=== PATIENT | male | born 1965 | race Caucasian/White ===

== ENCOUNTER 2021-01-01 04:30 | Day surgery (SDC) | payer OTHER ==
[~2021-01-01] VITALS: Ht 167.6 cm; Wt 76.2 kg
[2021-01-01 05:42] LABS: CALC OSMOLALITY 280 mosm/kg (275-300); CALCIUM 8.5 mg/dL (8.5-10.1); CARBON DIOXIDE 28.8 mmol/L (21.0-32.0); CHLORIDE - SERUM 100 mmol/L (98-107); CREATININE - SERUM 0.8 mg/dL (0.6-1.3); POTASSIUM - SERUM 4.1 mmol/L (3.5-5.1); SODIUM 137 mmol/L (136-145); UREA NITROGEN 12 mg/dL (7-18); eGFR NON AFRICAN AMERICAN > 90 mL/min (90-120)
[2021-01-01 05:44] LABS: GLUCOSE 230 mg/dL (74-106)
[2021-01-01 05:54] LABS: BASOPHILS 1.3 % (0-2); EOSINOPHILS 1.6 % (0-7); HEMATOCRIT 43.5 % (42.0-54.0); HEMOGLOBIN 14.6 g/dL (13.5-17.5); LYMPHOCYTES 38.4 % (15-50); MCH 30.4 pg (26.0-34.0); MCHC 33.6 g/dL (31.0-37.0); MCV 90.7 fL (80.0-100.0); MEAN PLATELET VOLUME 9.5 fL (7.4-10.4); MONOCYTES 9.3 % (2-11); NEUTROPHILS 49.4 % (40-80); PLATELET COUNT 214 10x3/uL (130-400); RBC 4.79 10x6/uL (4.20-6.10); RDW 13.2 % (11.5-14.5); WBC 7.2 10x3/uL (4.8-10.8)
[2021-01-01] MEDS ORDERED: NORVASC5 MG PO (06:12)
[2021-01-01] MEDS ORDERED: DULCOLAX5 MG PO (06:12)
[2021-01-01] MEDS ORDERED: LOW DOSE ASPIRI81 M1 PO (06:13)
[2021-01-01] MEDS ORDERED: NEURONTIN 400400 MG PO (06:13)
[2021-01-01] MEDS ORDERED: HCTZ25 MG PO (06:14)
[2021-01-01] MEDS ORDERED: GLUCOPHAGE1000 MG PO (06:14)
[2021-01-01] MEDS ORDERED: CRESTOR20 MG PO (06:15)
[2021-01-01] MEDS ORDERED: GLIPIZIDE10 MG PO (06:15)
[2021-01-01] MEDS ORDERED: LISINOPRIL40 MG PO (06:15)
[2021-01-01] MEDS ORDERED: COLACE100 MG PO (06:16)
[2021-01-01] MEDS ORDERED: ACETAMINOPHEN500 M1 PO (06:16)
[2021-01-01] MEDS ORDERED: OMEPRAZOLE20 M1 PO (06:17)
--- NOTE | 2021-01-01 06:25 | NUR ---
DURING HISTORY COLLECTION, PT STATES HE HAS BEEN HAVING CHEST PAIN FOR 1-2 MONTHS, HAD CP LAST 4 DAYS, LASTING APPROX 6 HOURS EACH TIME. HAD CP LAST NIGHT THAT STOPPED AROUND 0100. NOTIFIED DR GODINEZ WITH ANESTHESIA. HE CAME AND ASSESSED PT, ORDERED CARDIOLOGY CONSULT AND SURGERY ON HOLD AT THIS TIME.
--- NOTE | 2021-01-01 06:41 | NUR ---
PER DR JOSEPH, SURGERY IS CANCELLED FOR TODAY, HE WILL GO AND SPEAK WITH PT.
[2021-01-01 09:37] VITALS: Ht 167.6 cm; Wt 76.2 kg
--- NOTE | 2021-01-01 14:35 | NUR ---
DISCHARGED VIA W/C WITH GUARD TO [facility]. ALL BELONGINGS WITH GUARD.
--- NOTE | 2021-01-02 08:17 | OP ---
PATIENT NAME: LENKA ARCHER MEDICAL RECORD: [id number] :69 LOCATION:[facility] ADMISSION DATE: SURGEON: PETE JOSEPH DO DATE OF OPERATION: 01/01/2021 PROCEDURE PERFORMED: Right shoulder arthroscopy with revision rotator cuff repair, biceps tenodesis, subacromial decompression, and distal clavicle excision. PREOPERATIVE DIAGNOSES: Right shoulder recurrent rotator cuff tear, supraspinatus, SLAP tear, subacromial impingement and acromioclavicular joint arthritis. POSTOPERATIVE DIAGNOSES: Right shoulder recurrent rotator cuff tear, supraspinatus, SLAP tear, subacromial impingement and acromioclavicular joint arthritis. INDICATIONS: The patient is a 55-year-old inmate who had a right rotator cuff repair, he said in 2013. He injured it a while ago and waited seven months to have surgery done. MRIs showed the above findings. He is aware of the risks of this including infection, bleeding, damage to nerve, vessels retear, continued pain, loss of motion of the right arm, need for further surgery, and even and he signed the consent. SURGEON: Pete Joseph D.O. DESCRIPTION OF PROCEDURE: The patient was taken to the operative suite. After good block by anesthesia in preoperative area laid in left lateral decubitus position with the right shoulder up. Given 900 mg clindamycin, sedated and LMA was placed. The right shoulder was then prepped and draped in sterile fashion. Timeout was performed, everyone was in agreement of the correct side, site, patient and procedure. I then began by inflating the shoulder joint with an 18-gauge spinal needle through a posterior portal with 60 mL normal saline. I then withdrew the needle and established a posterior portal with an 11-blade scalpel. Trocar was then entered in the joint. I then established an anterior portal with an 18-gauge spinal needle and 11-blade scalpel. Trocar was brought in. I then saw a SLAP tear, full thickness rotator cuff tear of the supraspinatus at the footprint. I then brought in burner. The subscapularis was in good repair and there were no loose bodies seen in the joint inferior gutter. The cartilage was in good repair. I then did a biceps tenotomy and labral debridement at that time and went to the subacromial space and established a lateral portal. Using spinal 11-blade scalpel brought the trocar in and then did a bursectomy, subacromial decompression with acromioplasty and then through the anterior portal, a distal clavicle excision, open up the AC joint to approximately 7 mm. I then removed the instruments and opened up the lateral portal with a 15 blade scalpel, made careful dissection down with [place]'s to the rotator cuff tendon tear after using a shaver, the bur mode to decorticate the greater tuberosity. I then used 2 anchors medially with 4 suture tapes. I then brought it over to rotator cuff tear and brought over to 2 lateral row anchors. Once I was done with that, I then placed a Regeneten implant on and stapled into place sideways really due to the size of the tear and then went to the anterior humerus, made a small incision, carefully dissected long head of the biceps tendon and did a biceps tenodesis by drilling a hole unicortically and using 2.9 JuggerLoc loop stitch and put the tendon through this the loop and cinched it down to the humerus and then cut the loop OPERATIVE REPORT [id number] LENKA ARCHER and then went back through the tendon with the free needle twice tied it down and cut the excess tendon and suture. I then irrigated. Adam Reese, certified alcohol drug counselor closed the open sites with 2-0 Vicryl in inverted interrupted fashion, 4-0 Monocryl and the skin with 4-0 Monocryl inverted fashion on the portal sites. The anterior and posterior and then dressed with Dermabond glue, Telfa and Tegaderm. He was then awakened, put in a sling and taken to recovery in stable condition. BLOOD LOSS: Minimal. COMPLICATIONS: None. TRANSINT:[id number] Voice Confirmation ID: [id number] DOCUMENT ID: [id number] PETE JOSEPH DO at 0817 CC: [id number] DICTATION DATE: 01/01/211826 OIL FIELD PUMPER: 01/01/212045 [facility] 01/01/[address] [facility] [address] [place] [address]
== END 2021-01-01 14:35 | disposition home or self-care (01) ==
LOC: D.OPS 04:30
PROVIDERS: Anesthesiology; ATTEND Orthopaedic Surgery
DX: M75.121 Complete rotator cuff tear or rupture of right shoulder, not specified as traumatic (principal); S43.431A Superior glenoid labrum lesion of right shoulder, initial encounter; M75.41 Impingement syndrome of right shoulder; M13.811 Other specified arthritis, right shoulder; M25.511 Pain in right shoulder